=== PATIENT | female | born 1970 | race Caucasian/White ===

== ENCOUNTER → 2023-08-08 13:07 | Outpatient (CLI) | payer BC, SELFPAY ==
--- NOTE | 2023-08-08 13:14 | XR_ITS ---
FINAL REPORT CLINICAL HISTORY: knee pain arthritis in both knees, according to old ortho, fell last night/pain and soreness in knees and ankles, tingling in right leg, when sharp pain can't move, no surgery FINDINGS: RIGHT KNEE 3 views of the right knee were obtained. There is no acute fracture or dislocation. Visualized joint spaces are normally aligned. Soft tissues are unremarkable. IMPRESSION: No acute bony abnormality. Reviewed, Interpreted and Dictated by Kendell Walter III, MD Transcribed by Ofelia Gayle Authenticated and [facility]
--- NOTE | 2023-08-08 13:14 | XR_ITS ---
FINAL REPORT CLINICAL HISTORY: ankle pain arthritis in both knees, according to old ortho, fell last night/pain and soreness in knees and ankles, tingling in right leg, when sharp pain can't move, no surgery FINDINGS: LEFT ANKLE Three views demonstrate no acute fracture or dislocation. There is a small plantar calcaneal spur. The visualized joint spaces are normally aligned. The soft tissues are unremarkable. IMPRESSION: No acute bony abnormality. Reviewed, Interpreted and Dictated by Kendell Walter III, MD Transcribed by Ofelia Gayle Authenticated and [facility]
--- NOTE | 2023-08-08 13:14 | XR_ITS ---
FINAL REPORT CLINICAL HISTORY: ankle pain arthritis in both knees, according to old ortho, fell last night/pain and soreness in knees and ankles, tingling in right leg, when sharp pain can't move, no surgery FINDINGS: RIGHT ANKLE Three views demonstrate no acute fracture or dislocation. There is a small plantar calcaneal spur. The visualized joint spaces are normally aligned. The soft tissues are unremarkable. IMPRESSION: No acute bony abnormality. Reviewed, Interpreted and Dictated by Kendell Walter III, MD Transcribed by Ofelia Gayle Authenticated and [facility]
--- NOTE | 2023-08-08 13:14 | XR_ITS ---
FINAL REPORT CLINICAL HISTORY: foot pain arthritis in both knees, according to old ortho, fell last night/pain and soreness in knees and ankles, tingling in right leg, when sharp pain can't move, no surgery FINDINGS: LEFT FOOT Three views of the left foot demonstrate no acute fracture or dislocation. The visualized joint spaces are normally aligned. There is a small plantar calcaneal spur. The soft tissues are unremarkable. IMPRESSION: No acute bony abnormality. Reviewed, Interpreted and Dictated by Kendell Walter III, MD Transcribed by Ofelia Gayle Authenticated and [facility]
--- NOTE | 2023-08-08 13:14 | XR_ITS ---
FINAL REPORT CLINICAL HISTORY: foot pain arthritis in both knees, according to old ortho, fell last night/pain and soreness in knees and ankles, tingling in right leg, when sharp pain can't move, no surgery FINDINGS: right FOOT Three views of the right foot demonstrate no acute fracture or dislocation. The visualized joint spaces are normally aligned. There is a small plantar calcaneal spur. The soft tissues are unremarkable. IMPRESSION: No acute bony abnormality. Reviewed, Interpreted and Dictated by Kendell Walter III, MD Transcribed by Ofelia Gayle Authenticated and . [facility]
--- NOTE | 2023-08-08 13:14 | XR_ITS ---
FINAL REPORT CLINICAL HISTORY: Lt Knee pain arthritis in both knees, according to old ortho, fell last night/pain and soreness in knees and ankles, tingling in right leg, when sharp pain can't move, no surgery FINDINGS: LEFT KNEE: Three views of the left knee were obtained. There is no acute fracture or dislocation. Visualized joint spaces are normally aligned. There is no joint effusion. Soft tissues are unremarkable. IMPRESSION: No acute bony abnormality. Reviewed, Interpreted and Dictated by Kendell Walter III, MD Transcribed by Ofelia Gayle Authenticated and [facility]
== END ==
PROVIDERS: PCP Family Medicine; Visit Provider Orthopaedic Surgery
DX: M25.572 Pain in left ankle and joints of left foot (principal); M25.571 Pain in right ankle and joints of right foot; M25.562 Pain in left knee; M25.561 Pain in right knee; M79.672 Pain in left foot; M79.671 Pain in right foot
CPT/HCPCS: 73562; 73610; 73630

== ENCOUNTER 2023-08-13 18:11 | Emergency (ER) | payer BC, SELFPAY ==
[2023-08-13 18:30] VITALS: BP 142/94; PULSE 102; RESP 20; TEMP 36.8; O2SAT 97; BMI 29.0
--- NOTE | 2023-08-13 18:58 | XR_ITS ---
PROCEDURE INFORMATION: Exam: XR Left Elbow Exam date and time: 08/13/2023 7:02 PM Age: 52 years old Clinical indication: Pain; Elbow; Left; Additional info: Minor trauma, L elbow pain TECHNIQUE: Imaging protocol: Radiologic exam of the left elbow. Views: 3 or more views. COMPARISON: CR XR HUMERUS LT 08/13/2023 6:58 PM FINDINGS: Bones/joints: No acute fracture or malalignment. No joint effusion. Soft tissues: Normal. IMPRESSION: No acute osseous findings.
--- NOTE | 2023-08-13 18:58 | XR_ITS ---
PROCEDURE INFORMATION: Exam: XR Left Humerus Exam date and time: 08/13/2023 6:58 PM Age: 52 years old Clinical indication: Pain; Upper arm; Left; Additional info: Minor trauma, L shoulder pain TECHNIQUE: Imaging protocol: Radiologic exam of the left humerus. Views: 2 or more views. COMPARISON: CR XR SHOULDER LT MIN 2V 08/13/2023 6:57 PM FINDINGS: Bones/joints: No acute fracture or malalignment. Lungs: Left lung calcified granulomas. Soft tissues: Normal. IMPRESSION: No acute osseous findings.
--- NOTE | 2023-08-13 18:58 | XR_ITS ---
PROCEDURE INFORMATION: Exam: XR Left Shoulder Exam date and time: 08/13/2023 6:57 PM Age: 52 years old Clinical indication: Pain; Shoulder; Left; Additional info: Minor trauma, L shoulder pain TECHNIQUE: Imaging protocol: Radiologic exam of the left shoulder. Views: 2 or more views. COMPARISON: No relevant prior studies available. FINDINGS: Bones/joints: No acute fracture or malalignment. Lungs: Left lung calcified granulomas. Soft tissues: Normal. IMPRESSION: No acute osseous findings.
[2023-08-13 19:00] VITALS: BP 124/74; PULSE 93; TEMP 36.9; O2SAT 97
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
[2023-08-13 20:55] VITALS: BP 121/66; PULSE 94; RESP 18; TEMP 36.4; O2SAT 96
== END 2023-08-13 20:58 | disposition home or self-care (01) ==
PROVIDERS: Emergency Provider Emergency Medicine; PCP Family Medicine
DX: S43.402A Unspecified sprain of left shoulder joint, initial encounter (principal); Y93.72 Activity, wrestling
CPT/HCPCS: 73030; 73060; 73080; 99284

== ENCOUNTER 2024-04-23 17:35 | Emergency (ER) | payer MEDICAID, SELFPAY ==
[2024-04-23] VITALS (7 sets, daily range): BP systolic 134–160; BP diastolic 63–94; PULSE 68–87; RESP 18–20; TEMP 36.7; O2SAT 94–98; BMI 29.6
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
--- NOTE | 2024-04-23 17:34 | CT_ITS ---
PROCEDURE INFORMATION: Exam: CT Cervical Spine Without Contrast Exam date and time: 04/23/2024 7:28 PM Age: 53 years old Clinical indication: Injury or trauma; Additional info: Fall, struck head, severe R chest wall pain TECHNIQUE: Imaging protocol: Computed tomography of the cervical spine without contrast. Radiation optimization: All CT scans at this facility use at least one of these dose optimization techniques: automated exposure control; mA and/or kV adjustment per patient size (includes targeted exams where dose is matched to clinical indication); or iterative reconstruction. COMPARISON: CT CERVICAL SPINE WO CON 04/23/2024 7:28 PM FINDINGS: Bones: Nonspecific reversal. Vertebral body height and AP alignment is preserved. Incomplete segmentation at C2-C3. [id number] prevertebral osteophytosis. Mild degenerative change about the dens. Bilateral facet joint degenerative change. No acute cervical spine fracture. No definite high-grade central canal stenosis within limitations of technique. Lungs: Lung apices are normal. Pleural spaces: No visible pneumothorax. Vasculature: Vascular calcification. Soft tissues: Unremarkable. IMPRESSION: No acute cervical spine fracture.
--- NOTE | 2024-04-23 17:34 | CT_ITS ---
PROCEDURE INFORMATION: Exam: CT Abdomen And Pelvis With Contrast Exam date and time: 04/23/2024 7:33 PM Age: 53 years old Clinical indication: Injury or trauma; Fall; Blunt; Generalized; Additional info: Fall, struck head, severe R chest wall pain TECHNIQUE: Imaging protocol: Computed tomography of the abdomen and pelvis with contrast. Radiation optimization: All CT scans at this facility use at least one of these dose optimization techniques: automated exposure control; mA and/or kV adjustment per patient size (includes targeted exams where dose is matched to clinical indication); or iterative reconstruction. Contrast material: ISOVUE; Contrast volume: 75 ml; Contrast route: IV; COMPARISON: CT CHEST W CON 04/23/2024 7:33 PM FINDINGS: Liver: Normal. No mass. Gallbladder and biliary ducts: Gallbladder is surgically absent. No significant biliary ductal dilation. Pancreas: Normal. No ductal dilation. Spleen: Normal. No splenomegaly. Adrenal glands: Normal. No mass. Kidneys and ureters: Normal. No hydronephrosis. Stomach and bowel: Unremarkable. No obstruction. No mucosal thickening. Appendix: The appendix is visualized and appears normal. Intraperitoneal space: Unremarkable. No free air. No significant fluid collection. Vasculature: Unremarkable. No abdominal aortic aneurysm. Lymph nodes: Unremarkable. No enlarged lymph nodes. Urinary bladder: Unremarkable as visualized. Reproductive: Unremarkable as visualized. Bones/joints: Unremarkable. No acute fracture. Soft tissues: Unremarkable. IMPRESSION: No acute abnormality
--- NOTE | 2024-04-23 17:36 | CT_ITS ---
PROCEDURE INFORMATION: Exam: CT Thoracic Spine Without Contrast Exam date and time: 04/23/2024 7:30 PM Age: 53 years old Clinical indication: Injury or trauma; Additional info: Fall, severe R chest wall pain TECHNIQUE: Imaging protocol: Computed tomography of the thoracic spine without contrast. Radiation optimization: All CT scans at this facility use at least one of these dose optimization techniques: automated exposure control; mA and/or kV adjustment per patient size (includes targeted exams where dose is matched to clinical indication); or iterative reconstruction. COMPARISON: CT CERVICAL SPINE WO CON 04/23/2024 7:28 PM FINDINGS: Bones/joints: Minimal lumbar scoliosis. No vertebral body compression or acute fracture. Moderate degenerative changes in the lower thoracic spine. Mild degenerative changes in the upper thoracic spine. Soft tissues: Unremarkable. IMPRESSION: No acute abnormality. Degenerative changes as noted.
--- NOTE | 2024-04-23 17:49 | ED_ITS ---
Discharge Plan Disposition Patient Disposition: Home, Self-Care Prescriptions Prescriptions: New methocarbamol 750 mg tablet 1,500 mg PO TID 5 Days Qty: 30 0RF lidocaine 5 % adhesive patch,medicated 1 patch topical DAILY Qty: 30 0RF Rx Instructions: leave on most painful area for up to 12 hrs No Action omega 7-hlp-foo-fish oil [Fish Oil] 60-90-500 mg capsule 1 cap PO DAILY gabapentin 300 mg capsule 300 mg PO BID Qty: 60 3RF aspirin 81 mg tablet,delayed release (DR/EC) 81 mg PO DAILY 30 Days Qty: 30 2RF cyclobenzaprine 10 mg tablet 10 mg PO TID Qty: 90 3RF ergocalciferol (vitamin D2) [Vitamin D2] 1,250 mcg (50,000 unit) capsule 1,250 mcg PO WEEKLY 30 Days Qty: 5 2RF fluoxetine 10 mg capsule 10 mg PO DAILY Qty: 30 3RF metformin 1,000 mg tablet 1,000 mg PO BID Qty: 60 3RF atorvastatin 40 mg tablet 40 mg PO DAILY Qty: 30 3RF lisinopril 10 mg tablet 10 mg PO DAILY Patient Comments: TAKE 1 TABLET BY MOUTH ONCE DAILY FOR 30 DAYS Activity Restrictions/Add. Instructions Additional Instructions/Restrictions: Robaxin can cause you to feel drowsy. Do not drive, operate heavy machinery, or engage in any activity that may make you tired, fall asleep, and because harm to yourself or others while taking this medication. Do not take Robaxin with cyclobenzaprine, only take 1 or the other. Take Tylenol 1000 mg every 6 hours (4 times daily) and ibuprofen 400 mg every 6 hours (4 times daily) as needed with food and water to prevent GI upset and kidney damage. Lidocaine patches over point of most tenderness. Follow-up with your family doctor within 48 hours to establish care for this visit to the emergency department and ensure improvement. Clinical Impressions Clinical Impression: Right-sided chest wall pain, Fall Instructions Patient Instructions: DI for Low Back Pain Discharge ED Provider: George Marquez General Adult HPI General Chief complaint: Back Pain/Injury Stated complaint: PAIN FROM FALL Time Seen by Provider: 04/23/24 17:41 Mode of Arrival: EMS Source of Information: Patient and EMS Limitations: No Limitations Description of Symptoms (Recalled from ER Triage Doc. by RN): R RIB/BACK PAIN AFTER A FALL History of Present Illness HPI narrative: Please note that above description of symptoms, in this electronic medical record under categorization of recalled from ER triage doctor by RN are reflective of an initial nursing assessment, however, is not reflective of my full history and physical exam that was personally taken and clarified. Consequentially, this preceding description of symptoms, which may include the patient's categorized chief complaint in the EMR, do not reflect my personal clinical impression, and the ultimate description of history of present illness and patient stated complaints should be deferred to this section of the note. Unless stated otherwise or congruent with this section of the note, additional signs, symptoms, or incongruence should be interpreted as inaccurate with my clinical impression. Related Data Home Medications Medication Instructions Recorded Confirmed omega 1-yla-oee-fish oil 60 mg-90 1 cap PO DAILY 06/26/23 08/28/23 mg-500 mg capsule (Fish Oil) lisinopril 10 mg tablet 10 mg PO DAILY 04/15/24 04/15/24 Previous Rx's Medication Instructions Recorded gabapentin 300 mg capsule 300 mg PO BID #60 caps 06/27/23 aspirin 81 mg tablet,delayed 81 mg PO DAILY 30 days #30 tabs 04/15/24 release atorvastatin 40 mg tablet 40 mg PO DAILY #30 tabs 04/15/24 cyclobenzaprine 10 mg tablet 10 mg PO TID #90 tabs 04/15/24 ergocalciferol (vitamin D2) 1,250 1,250 mcg PO WEEKLY 30 days #5 caps 04/15/24 mcg (50,000 unit) capsule (Vitamin D2) fluoxetine 10 mg capsule 10 mg PO DAILY #30 caps 04/15/24 metformin 1,000 mg tablet 1,000 mg PO BID #60 tabs 04/15/24 lidocaine 5 % topical patch 1 patch topical DAILY #30 ea 04/23/24 methocarbamol 750 mg tablet 1,500 mg (2 x 750 mg) PO TID 5 04/23/24 days #30 tabs Allergies Allergy/AdvReac Type Severity Reaction Status Date / Time No Known Allergies Allergy Verified 04/15/24 11:35 [facility] Disclaimer: The information contained in this section may have been updated after the patient was seen, as this information can be updated by other users. Medical History Depression Anxiety Diabetes mellitus Surgical History History of cholecystectomy H/O tubal ligation Family History Mother Diabetes Coronary artery disease Father Coronary artery disease Diabetes Social History Smoking Status: Never smoker smoking status stop date: 10/21/2012 alcohol intake: never substance use type: denies use current occupational status: disabled Travel in the last 8 weeks: [facility] [employer] [facility] household members: significant other housing: house marital status: life partner ROS Obtained: Yes All systems reviewed & no additional complaints except as documented Physical Exam General General appearance: alert and in distress (Splinting in bed secondary to pain in right posterior lateral chest wall) Head Head exam: atraumatic and normocephalic Eye Eye exam: Present normal appearance, PERRL and EOMI ENT ENT exam: Present mucous membranes moist Neck Neck exam: Present normal inspection, full ROM and trachea midline Chest Chest inspection: Present tenderness (Scant bruising inferior/posterior lateral chest wall on the right. Breath sounds bilateral and equal 1. No abdominal tenderness. No pelvic tenderness, lumbar spine tenderness, or lower extremity deficits. ) Respiratory Respiratory exam: Present normal lung sounds bilaterally; Absent respiratory distress, wheezes, stridor, accessory muscle use or prolonged expiratory phase Cardiovascular Cardiovascular exam: Present normal rhythm Abdominal Exam Abdominal exam: Present soft; Absent distention, tenderness, guarding, rebound or rigidity Extremities Exam Extremities exam: Absent edema Neurological Exam Neurological exam: Present alert, oriented X3, CN II-XII intact and normal gait; Absent motor sensory deficit Skin Skin exam: Present warm and dry; Absent diaphoresis or erythema Medical Decision Making Medical Records Medical records reviewed: Yes I reviewed the patient's medical records. Berto Inquiry Pt receiving controlled substance: No Berto was queried for this patient: No Vital Signs: 04/23/24 17:33 04/23/24 18:00 04/23/24 18:30 Pulse Rate 78 77 Pulse Rate [Right] 86 Respiratory Rate 20 Blood Pressure 137/68 154/84 H Blood Pressure [Right Arm] 160/94 H Blood Pressure Mean [Right Arm] 116 02 Sat by Pulse Oximetry 96 97 96 Oxygen Delivery Method Room Air Room Air 04/23/24 19:00 Pulse Rate 87 Pulse Rate [Right] Respiratory Rate Blood Pressure 143/66 H Blood Pressure [Right Arm] Blood Pressure Mean [Right Arm] 02 Sat by Pulse Oximetry 97 Oxygen Delivery Method Room Air Lab Data Lab Results 04/23/24 18:30: WBC 7.9, RBC 4.36, Hgb 13.8, Hct 40.9, MCV 94.0, MCH 31.6 H, MCHC 33.6, RDW 13.7, Plt Count 339, MPV 7.3 L, Neut % (Auto) 66.3, Lymph % (Auto) 25.6, [place]oke % (Auto) 6.6, Eos % (Auto) 0.7, Baso % (Auto) 0.8, Neut # (Auto) 5.3, Lymph # (Auto) 2.0, [place] # (Auto) 0.5, Eos # (Auto) 0.1, Baso # (Auto) 0.1, PT 10.3, INR 0.91, APTT 27.2, Sodium 139, Potassium 3.6, Chloride 106, Carbon Dioxide 28, Anion Gap 8.6, BUN 12, Creatinine 0.80, Estimated Creat Clear 90, Estimated GFR 75, Est GFR ( Amer) 90, Glucose 252 H, Calcium 9.6, Total Bilirubin 0.2, AST 26, ALT 20, Alkaline Phosphatase 89, Total Protein 7.2, Albumin 4.3, Globulin 2.9, Albumin/Globulin Ratio 1.5 04/23/24 18:30 04/23/24 18:30 Orders (Tests/Meds): ED MEDICATIONS Discontinued Medications Generic Name Dose Route Start Last Admin Trade Name Almas PRN Reason Stop Dose Admin Acetaminophen 1,000 mg 04/23/24 17:34 04/23/24 17:57 Acetaminophen 1,000mg/100ml Vial IV 04/23/24 17:35 1,000 mg ONCE ONE Administration Acetaminophen 1,000 mg 04/23/24 19:56 Acetaminophen 500mg Tab PO 04/23/24 19:57 ONCE ONE Hydromorphone HCl 1 mg 04/23/24 17:34 04/23/24 17:58 Hydromorphone 2mg/Ml Syringe IV 04/23/24 17:35 1 mg ONCE ONE Administration Iopamidol 75 ml 04/23/24 19:34 04/23/24 19:43 Iopamidol-370 (76%);100ml Bottle IV 04/23/24 19:35 75 ml ONCE ONE Administration Ketorolac Tromethamine 15 mg 04/23/24 17:34 04/23/24 17:57 Ketorolac 30mg/Ml Vial IV 04/23/24 17:35 15 mg ONCE ONE Administration Lidocaine 1 each 04/23/24 19:56 Lidocaine 5% Transdermal Patch TP 04/23/24 19:57 ONCE ONE Methocarbamol 1,500 mg 04/23/24 19:56 Methocarbamol 500mg Tablet PO 04/23/24 19:57 ONCE ONE Sodium Chloride 10 ml 04/23/24 19:34 04/23/24 19:43 Sodium Chloride 0.9% 10ml Syr (Rad Only) IV 04/23/24 19:35 10 ml ONCE ONE Administration ORDERS Category Date Time Status CT abdomen pelvis w con Stat Cat Scan 04/23/24 17:[address] cervical spine wo con Stat Cat Scan 04/23/24 17:[address] chest w con Stat Cat Scan 04/23/24 17:[address] head/brain wo con Stat Cat Scan 04/23/24 17:[address] thoracic spine wo con Stat Cat Scan 04/23/24 17:36 Completed CBC w/Auto Diff [Complete Blood Count Auto Diff] Stat Lab 04/23/24 18:30 Completed CMP [Comprehensive Metabolic Panel] Stat Lab 04/23/24 18:30 Completed PT INR [Prothrombin Time INR] Stat Lab 04/23/24 18:30 Completed PTT [Activated Partial Thrombo Time] Stat Lab 04/23/24 18:30 Completed Medical Decision Narrative: 53-year-old female history of hypertension and diabetes and hyperlipidemia presenting with pain after fall. Patient states she was walking outside, slipped on the steps in the rain, landed on her right side on the concrete. Struck the side of her head, no loss of conscious. Had immediate pain in her right side that was so severe that she was unable to get herself up. Called EMS. EMS gave her 100 mcg of fentanyl and transported her to the emergency department. Patient states not having head pain, vision changes, neck or back pain, but having severe right-sided chest wall pain. No difficulty breathing, cough, mops this, vomiting, lower back, hip or leg pain. Ambulated once EMS was able to help her up to the EMS truck and onto the stretcher. Not on anticoagulation. History was obtained via conversation with patient and EMS. On arrival, patient hemodynamically stable, alert, oriented x4, appropriate, GCS 15, moving all extremities spontaneously, pupils equal and reactive to light. Full physical exam performed and significant for 53-year-old female who appears to be in acute distress secondary to pain. Holding her right side. Splinting in bed. Not moving much. Acting as if she is in severe pain even prior to laying hands on affected area. Lungs are clear to auscultation bilaterally. Oxygen is normal, patient is tachycardic and hypertensive. Abdomen soft, nontender, nondistended. No other abnormalities on physical exam. Differential includes rib fracture, pulmonary contusion, liver laceration, strain, sprain, fracture, intracranial bleed, among others. Patient was given 1 mg Dilaudid, 15 mg Toradol for symptomatic management and correction of underlying abnormalities. Workup independently interpreted and significant for nonactionable CBC or chemistry. CT imaging of the head, neck, chest, abdomen and pelvis without acute pathology. See radiology read for full review of final results. On reevaluation, patient still having pain, given lidocaine patch and Robaxin. Given patient presentation, workup, history, this most likely represents musculoskeletal strain in setting of fall from standing. Because patient at baseline without signs or symptoms of clinical decompensation, deemed appropriate for discharge. Results were relayed to patient who voiced understanding and were agreeable to outpatient management and follow up. I discussed my clinical impression with patient and answered all questions. At this time, the evidence for any other entities in the differential is insufficient to warrant any further testing or ED observation. This was explained as well. Advisory was given that persistent or worsening symptoms require further evaluation. I confirmed the understanding of this discussion. 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 Electronic conductor symphonic orchestra of the spoken language may permit errors. Although I have reviewed the note, some errors may still exist. Critical Care Critical Care Time Critical Care Time: No
[2024-04-23] MEDS: KETOROLAC 30MG/ML VIAL 15 MG IV (17:57)
[2024-04-23] MEDS: ACETAMINOPHEN 1,000MG/100ML VIAL 1000 MG IV (17:57)
[2024-04-23] MEDS: HYDROMORPHONE 2MG/ML SYRINGE 1 MG IV (17:58)
[2024-04-23 18:42] LABS: Basophils # 0.1 K/mm3 (0-0.2); Basophils % 0.8 % (0.1-2.0); Eosinophils # 0.1 K/mm3 (0.0-0.4); Eosinophils % 0.7 % (0.1-12.0); Hematocrit 40.9 % (37.0-47.0); Hemoglobin 13.8 g/dL (12.2-16.2); Lymphocytes % 25.6 % (10-50); Mean Corpuscular HGB Conc 33.6 g/dL (31.8-35.4); Mean Corpuscular Hemoglobin 31.6 pg (27.0-31.2); Mean Platelet Volume 7.3 fl (7.4-10.4); Monocytes # 0.5 K/mm3 (0.1-1.0); Monocytes % 6.6 % (1.7-9.3); Neutrophils # 5.3 K/mm3 (1.8-7.8); Neutrophils % 66.3 % (37.0-80.0); Platelet Count 339 K/mm3 (142-424); Red Blood Count 4.36 M/mm3 (4.20-5.40); Red Cell Distribution Width 13.7 % (11.5-17.5); White Blood Count 7.9 K/mm3 (4.8-10.8)
[2024-04-23 18:48] LABS: Chloride 106 mmol/L (98-107); Potassium 3.6 mmoL/L (3.5-5.1); Sodium 139 mmol/L (136-145)
[2024-04-23 18:50] LABS: Blood Urea Nitrogen 12 mg/dl (7-17)
[2024-04-23 18:51] LABS: Alanine Aminotransferase 20 U/L (12-78); Albumin Level 4.3 g/dl (3.5-5.0); Albumin/Globulin Ratio 1.5 (1.1-1.8); Alkaline Phosphatase 89 U/L (38-126); Anion Gap 8.6 mEq/L (5-15); Aspartate Amino Transferase 26 U/L (14-36); Bilirubin,Total 0.2 mg/dl (0.2-1.3); Calcium 9.6 mg/dl (8.4-10.2); Carbon Dioxide 28 mmol/L (22.0-30.0); Creatinine Clearance Estimated 90 mL/min (50-200); Estimated Glomerular Filt Rate 75 ml/min (>60); GFR (African American) 90 ML/MIN (>60); Globulin 2.9 g/dL (1.3-3.2); Glucose 252 mg/dl (74-100); Total Protein,Serum 7.2 g/dl (6.3-8.2)
[2024-04-23 18:53] LABS: Activated Partial Thrombo Time 27.2 seconds (22.8-30.6); INR 0.91 (0.9-1.1); Prothrombin Time 10.3 seconds (10.1-12.5)
--- NOTE | 2024-04-23 19:18 | PC.NURSE ---
Patient to CT in wheelchair
[2024-04-23] MEDS: SODIUM CHLORIDE 0.9% 10ML SYR (RAD ONLY) 10 ML IV (19:43)
[2024-04-23] MEDS: IOPAMIDOL-370 (76%);100ML BOTTLE 75 ML IV (19:43)
--- NOTE | 2024-04-23 19:43 | PC.NURSE ---
Patient returned to room in wheelchair from CT
[2024-04-23] MEDS: LIDOCAINE 5% TRANSDERMAL PATCH 1 EACH TP (20:04)
[2024-04-23] MEDS: METHOCARBAMOL 500MG TABLET 1500 MG PO (20:04)
== END 2024-04-23 20:34 | disposition home or self-care (01) ==
PROVIDERS: Emergency Provider Emergency Medicine; PCP Family Medicine
DX: R07.89 Other chest pain (principal); W01.10XA Fall on same level from slipping, tripping and stumbling with subsequent striking against unspecified object, initial encounter; E11.9 Type 2 diabetes mellitus without complications; K21.9 Gastro-esophageal reflux disease without esophagitis; E78.5 Hyperlipidemia, unspecified; I10 Essential (primary) hypertension; Z79.84 Long term (current) use of oral hypoglycemic drugs
CPT/HCPCS: 70450; 71260; 72125; 72128; 74177; 80053; 85025; 85610; 85730; 96374; 96375; 99285; J0131; J1170; J1885; Q9967

== ENCOUNTER 2024-04-30 16:25 | Outpatient (CLI) | payer MEDICAID, SELFPAY | END 2024-04-30 23:59 | disposition home or self-care (01) | LOC: LAB.DROPOF 16:26 | PROVIDERS: PCP Nurse Practitioner Family; Visit Provider Nurse Practitioner Family | DX: L02.224 Furuncle of groin (principal) | CPT/HCPCS: 87070; 87077; 87186; 87205 ==

== ENCOUNTER 2024-07-23 16:55 | Emergency (ER) | payer MEDICAID, SELFPAY ==
[2024-07-23 16:56] VITALS: BP 162/87; PULSE 94; RESP 16; TEMP 36.5; O2SAT 98; BMI 30.2
[2024-07-23 17:06] VITALS: BP 162/87; PULSE 100; O2SAT 97
--- NOTE | 2024-07-23 17:08 | ECG_ITS ---
APPROVED REPORT Exam: Resting ECG HR:91 bpm ECG Measurements Heart Rate 91 AXES MO 158 P 68 QRSd 75 QRS 85 QT 338 T -9 QTc 387 Conclusion SINUS RHYTHM LOW QRS VOLTAGE IN PRECORDIAL LEADS [QRS DEFLECTION < 1.0 mV IN CHEST LEADS] ANTEROSEPTAL MYOCARDIAL INFARCTION , OF INDETERMINATE AGE [40+ ms Q WAVE IN V1-V4] ABNORMAL ECG UNCONFIRMED REPORT Electronically signed by : James Tena, 07/23/2024 22:52:04
--- NOTE | 2024-07-23 17:15 | XR_ITS ---
PROCEDURE INFORMATION: Exam: XR Chest Exam date and time: 07/23/2024 5:28 PM Age: 53 years old Clinical indication: Pain; Other: Chest; Additional info: Chest pain, epigastric pain TECHNIQUE: Imaging protocol: Radiologic exam of the chest. Views: 1 view. COMPARISON: CT CHEST W CON 04/23/2024 7:33 PM FINDINGS: Lungs: Lungs are clear. No focal consolidation or pulmonary edema. Stable small left calcified granuloma. Pleural spaces: No pleural effusion. No pneumothorax. Heart/Mediastinum: Cardiomediastinal silhouette is normal. Diaphragm: Stable mild asymmetric elevation of the right hemidiaphragm. Bones/joints: No acute abnormality. Intraperitoneal space: Postsurgical changes in the right upper abdomen. IMPRESSION: No acute findings.
[2024-07-23 17:23] LABS: Basophils % 0.4 % (0.1-2.0); Eosinophils # 0.1 K/mm3 (0.0-0.4); Eosinophils % 1.3 % (0.1-12.0); Hematocrit 42.5 % (37.0-47.0); Hemoglobin 13.5 g/dL (12.2-16.2); Lymphocytes # 2.3 K/mm3 (0.7-4.5); Lymphocytes % 25.1 % (10-50); Mean Corpuscular HGB Conc 31.8 g/dL (31.8-35.4); Mean Corpuscular Hemoglobin 30.9 pg (27.0-31.2); Mean Corpuscular Volume 97.2 fl (81-99); Mean Platelet Volume 6.7 fl (7.4-10.4); Monocytes # 0.5 K/mm3 (0.1-1.0); Monocytes % 4.9 % (1.7-9.3); Neutrophils # 6.3 K/mm3 (1.8-7.8); Neutrophils % 68.3 % (37.0-80.0); Platelet Count 340 K/mm3 (142-424); Red Blood Count 4.38 M/mm3 (4.20-5.40); Red Cell Distribution Width 13.5 % (11.5-17.5); White Blood Count 9.3 K/mm3 (4.8-10.8)
[2024-07-23 17:30] VITALS: BP 134/76; PULSE 88; O2SAT 97
--- NOTE | 2024-07-23 17:33 | ED_ITS ---
<Statement entered by Guy Tena MD - 07/23/24 22:49> I was consulted by the HORACE, and we discussed the complexity of the problems being addressed. I approved the treatment and management plan for this patient's care in the emergency department, thus performing a substantive portion of the medical decision making. Guy Tena MD, JANES, FACEP Discharge Plan Disposition Patient Disposition: Home, Self-Care Condition: Good Prescriptions Prescriptions: No Action aspirin 81 mg tablet,delayed release (DR/EC) 81 mg PO DAILY 30 Days Qty: 30 2RF cyclobenzaprine 10 mg tablet 10 mg PO TID Qty: 90 3RF ergocalciferol (vitamin D2) [Vitamin D2] 1,250 mcg (50,000 unit) capsule 1,250 mcg PO WEEKLY 30 Days Qty: 5 2RF fluoxetine 10 mg capsule 10 mg PO DAILY Qty: 30 3RF metformin 1,000 mg tablet 1,000 mg PO BID Qty: 60 3RF atorvastatin 40 mg tablet 40 mg PO DAILY Qty: 30 3RF lisinopril 10 mg tablet 10 mg PO DAILY Patient Comments: TAKE 1 TABLET BY MOUTH ONCE DAILY FOR 30 DAYS omeprazole 20 mg capsule,delayed release(DR/EC) 20 mg PO BID Qty: 60 2RF methocarbamol 750 mg tablet 1,500 mg PO TID 5 Days Qty: 30 0RF lidocaine 5 % adhesive patch,medicated 1 patch topical DAILY Qty: 30 0RF Rx Instructions: leave on most painful area for up to 12 hrs Referrals Follow up/Referrals: Tiburcio Zamudio II, MD [Staff Physician] - See instructions Ezequiel Diaz MD [Primary Care Provider] - See instructions Activity Restrictions/Add. Instructions Additional Instructions/Restrictions: Please call in the morning to make appointment with Dr. Zamudio. Follow-up with your PCP within 48 hours for recheck. Return to ER for any worsening signs or symptoms as needed. Clinical Impressions Clinical Impression: Dysphagia Qualifiers: Dysphagia type: unspecified Qualified Code(s): R13.10 - Dysphagia, unspecified Instructions Patient Instructions: DI for Esophageal Dysphagia Print Language Print Language: [place] Discharge ED Provider: Guy Tena General Adult [facility] General Chief complaint: Chest Pain Stated complaint: epigastric pain Time Seen by Provider: 07/23/24 17:33 Mode of Arrival: EMS Source of Information: Patient and EMS Limitations: No Limitations Description of Symptoms (Recalled from ER Triage Doc. by RN): pt presents to ED with c/o chest pain, epigastic pain. pt reports that she went to see her pcp for burning in her chest that has been ongoing for the past 3-4 days. pt was given omeprazole 20mg today. pt reports that she took the medication and then begin to feel worsening epigastic pain, nausea, hot flashes. History of Present Illness HPI narrative: YesterdayPatient presents for evaluation of dysphagia. Patient reported that she had some soreness that she described as chest pain. She went to her PCP today for evaluation and he gave her a pill to try which she took. She then went home and had 3 glazed doughnut and had immediate recurrence of the pain that she describes as retrosternal. She does not have a cardiac history did but did have a vomiting episode at which point her discomfort was relieved. She did not report feeling choked or drooling. She has since been able to tolerate water but was brought to the emergency department for evaluation. She denies fever chills hemoptysis hematochezia melena diarrhea. Related Data Home Medications ?Medication ?Instructions ?Recorded ?Confirmed lisinopril 10 mg tablet 10 mg PO DAILY 04/15/24 07/23/24 Previous Rx's ?Medication ?Instructions ?Recorded aspirin 81 mg tablet,delayed 81 mg PO DAILY 30 days #30 tabs 04/15/24 release atorvastatin 40 mg tablet 40 mg PO DAILY #30 tabs 04/15/24 cyclobenzaprine 10 mg tablet 10 mg PO TID #90 tabs 04/15/24 ergocalciferol (vitamin D2) 1,250 1,250 mcg PO WEEKLY 30 days #5 caps 04/15/24 mcg (50,000 unit) capsule (Vitamin D2) fluoxetine 10 mg capsule 10 mg PO DAILY #30 caps 04/15/24 metformin 1,000 mg tablet 1,000 mg PO BID #60 tabs 04/15/24 lidocaine 5 % topical patch 1 patch topical DAILY #30 ea 04/23/24 methocarbamol 750 mg tablet 1,500 mg (2 x 750 mg) PO TID 5 04/23/24 days #30 tabs omeprazole 20 mg capsule,delayed 20 mg PO BID #60 caps 07/23/24 release Allergies Allergy/AdvReac Type Severity Reaction Status Date / Time No Known Allergies Allergy Verified 07/23/24 11:03 [facility] Disclaimer: The information contained in this section may have been updated after the patient was seen, as this information can be updated by other users. Medical History Depression Anxiety Diabetes mellitus Surgical History History of cholecystectomy H/O tubal ligation Family History Mother Diabetes Coronary artery disease Father Coronary artery disease Diabetes Social History Smoking Status: Never smoker smoking status stop date: 10/21/2012 alcohol intake: never substance use type: denies use current occupational status: disabled Travel in the last 8 weeks: [place] the [place] household members: significant other housing: house marital status: life partner Other Medical History Have you received the Pneumonia Vaccine: No ROS Obtained: Yes Systems reviewed as appropriate & no additional complaints except as documented Physical Exam General General appearance: alert and in no apparent distress Neck Neck exam: Present lymphadenopathy Respiratory Respiratory exam: Present normal lung sounds bilaterally Cardiovascular Cardiovascular exam: Present regular rate Neurological Exam Neurological exam: Present alert and oriented X3 Medical Decision Making Medical Records Medical records reviewed: Yes I reviewed the patient's medical records. Screening: Per USPSTF and CDC recommendations, given the prevalence of disease in our region, it is our hospital?s policy to screen for HIV and viral Hepatitis for all patients aged 18 and over and those with ongoing risk factors. Berto Inquiry Pt receiving controlled substance: No Vital Signs: 07/23/24 16:56 07/23/24 17:06 07/23/24 17:30 Temperature 97.7 F Temperature Source Oral Pulse Rate 100 H 88 Pulse Rate [Left Radial] 94 H Respiratory Rate 16 Blood Pressure 162/87 H 134/76 Blood Pressure [Right Arm] 162/87 H Blood Pressure Mean [Right Arm] 112 02 Sat by Pulse Oximetry 98 97 97 Oxygen Delivery Method Room Air 07/23/24 18:00 07/23/24 18:30 07/23/24 19:03 Temperature 98.0 F Temperature Source Pulse Rate 88 90 86 Pulse Rate [Left Radial] Respiratory Rate 16 Blood Pressure 140/77 144/82 H 108/79 L Blood Pressure [Right Arm] Blood Pressure Mean [Right Arm] 02 Sat by Pulse Oximetry 99 97 Oxygen Delivery Method Room Air Room Air Lab Data Lab results reviewed: Yes I reviewed the patient's lab results. Lab Results 07/23/24 17:12: WBC 9.3, RBC 4.38, Hgb 13.5, Hct 42.5, MCV 97.2, MCH 30.9, MCHC 31.8, RDW 13.5, Plt Count 340, MPV 6.7 L, Neut % (Auto) 68.3, Lymph % (Auto) 25.1, [place] % (Auto) 4.9, Eos % (Auto) 1.3, Baso % (Auto) 0.4, Neut # (Auto) 6.3, Lymph # (Auto) 2.3, [place] # (Auto) 0.5, Eos # (Auto) 0.1, Baso # (Auto) 0.0, Sodium 136, Potassium 4.4, Chloride 101, Carbon Dioxide 23, Anion Gap 16.4 H, BUN 10, Creatinine 0.60, Estimated Creat Clear 123, Estimated GFR 104, Est GFR ( Amer) 126, Glucose 177 H, Calcium 9.4, Total Bilirubin 0.8, AST 35, ALT 22, Alkaline Phosphatase 83, Troponin I < 0.01, Total Protein 7.6, Albumin 4.7, Globulin 2.9, Albumin/Globulin Ratio 1.6, Lipase 105, HIV 1&2 Antibody Rapid Nonreactive 07/23/24 17:12 07/23/24 17:12 Orders (Tests/Meds): ED MEDICATIONS Discontinued Medications Generic Name Dose Route Start Last Admin Trade Name [place]mas PRN Reason Stop Dose Admin Acetaminophen 1,000 mg 07/23/24 17:54 07/23/24 18:08 Acetaminophen 1,000mg/100ml Vial IV 07/23/24 17:55 1,000 mg ONCE ONE Administration Belladonna Alkaloids 60 ml 07/23/24 17:54 07/23/24 18:07 Belladonna Alkaloids 60 Ml Ml PO 07/23/24 17:55 60 ml ONCE ONE Administration Lactated Ringer's 1,000 mls @ 999 mls/hr 07/23/24 17:54 07/23/24 18:08 Lactated Ringer's 1000 Ml Bag IV 07/23/24 18:54 999 mls/hr .Q1H1M ONE Administration Ondansetron HCl 4 mg 07/23/24 17:54 07/23/24 18:08 Ondansetron 4mg/2ml Vial IV 07/23/24 17:55 4 mg ONCE ONE Administration Sodium Chloride 10 ml 07/23/24 17:15 Sodium Chloride 0.9% 10ml Flush Syringe IV 08/22/24 17:14 NEEDED PRN Maintain IV Site ORDERS Category Date Time Status XR chest portable Stat Exams 07/23/24 17:15 Completed Complete Blood Count Auto Diff Stat Lab 07/23/24 17:12 Completed Comprehensive Metabolic Panel Stat Lab 07/23/24 17:12 Completed HIV (1&2) Antibody Rapid Stat Lab 07/23/24 17:12 Completed Hep C Ab with Reflex to RNA Stat Lab 07/23/24 17:12 Received Lipase Stat Lab 07/23/24 17:12 Completed Troponin I Stat Lab 07/23/24 17:12 Completed Medical Decision Narrative: In summary patient is a 53-year-old female who presents to the emergency department for evaluation of dysphagia. Patient is normotensive with a blood pressure 162/87 sat of 98% heart rate 94 respiratory rate of 16 upon arrival, afebrile. Physical exam is remarkable for slight epigastric tenderness to palpation but no rebound or guarding or rigidity. Pain is not reproducible on palpation of the sternum or anterior chest wall. Breath sounds are clear and equal bilaterally to the bases.. Differential diagnosis includes ACS versus gastroenteritis versus esophageal spasm versus ulcer disease etc. Initial workup will be conducted with hematologic labs twelve-lead EKG plain film chest x-ray. Initial interventions include crystalloid bolus Tylenol GI cocktail. Initial workup reviewed by me shows that her hematologic labs are nonactionable including an undetectable troponin, twelve-lead EKG shows no evidence of ACS, my informal interpretation of her plain film chest x-ray shows no acute processes. Upon repeat evaluation patient had complete resolution of her symptoms after administration of GI cocktail and is tolerating oral intake. Given this patient is appropriate for discharge with referral to gastroenterology for upper endoscopy evaluation with strict return precautions. Critical Care Critical Care Time Critical Care Time: No
--- NOTE | 2024-07-23 17:40 | PC.NURSE ---
pa at bedside
[2024-07-23 17:43] LABS: Albumin Level 4.7 g/dl (3.5-5.0); Chloride 101 mmol/L (98-107); Potassium 4.4 mmoL/L (3.5-5.1); Sodium 136 mmol/L (136-145)
[2024-07-23 17:45] LABS: Blood Urea Nitrogen 10 mg/dl (7-17)
[2024-07-23 17:46] LABS: Alanine Aminotransferase 22 U/L (12-78); Albumin/Globulin Ratio 1.6 (1.1-1.8); Alkaline Phosphatase 83 U/L (38-126); Anion Gap 16.4 mEq/L (5-15); Aspartate Amino Transferase 35 U/L (14-36); Bilirubin,Total 0.8 mg/dl (0.2-1.3); Calcium 9.4 mg/dl (8.4-10.2); Carbon Dioxide 23 mmol/L (22.0-30.0); Creatinine Clearance Estimated 123 mL/min (50-200); Estimated Glomerular Filt Rate 104 ml/min (>60); GFR (African American) 126 ML/MIN (>60); Globulin 2.9 g/dL (1.3-3.2); Glucose 177 mg/dl (74-100); Total Protein,Serum 7.6 g/dl (6.3-8.2)
[2024-07-23 17:58] LABS: Troponin I < 0.01 ng/ml (0.00-0.034)
[2024-07-23 18:00] VITALS: BP 140/77; PULSE 88; O2SAT 99
[2024-07-23] MEDS: BELLADONNA ALKALOIDS 60 ML ML PO (18:07)
[2024-07-23] MEDS: ACETAMINOPHEN 1,000MG/100ML VIAL 1000 MG IV (18:08)
[2024-07-23] MEDS: ONDANSETRON 4MG/2ML VIAL 4 MG IV (18:08)
[2024-07-23] MEDS: LACTATED RINGERS 1000ML 1,000 ML 999 ML IV (18:08)
[2024-07-23 18:10] LABS: HIV (1&2) Antibody Rapid NONREACTIVE (NONREACTIVE)
[2024-07-23 18:12] LABS: Lipase 105 U/L (23-300)
[2024-07-23 18:30] VITALS: BP 144/82; PULSE 90; O2SAT 97
[2024-07-23 19:03] VITALS: BP 108/79; PULSE 86; RESP 16; TEMP 36.7
[2024-07-25 05:15] LABS: HCV Ab Non Reactive (Non Reactive)
== END 2024-07-23 19:11 | disposition home or self-care (01) ==
PROVIDERS: Physician Assistant; Emergency Provider Student in an Organized Health Care Education/Training Program; PCP Family Medicine
DX: R13.10 Dysphagia, unspecified (principal)
CPT/HCPCS: 71045; 80053; 83690; 84484; 85025; 86803; 87389; 93005; 96361; 96374; 96375; 99284; J0131; J2405; J7120

== ENCOUNTER 2024-09-30 07:50 | Day surgery (SDC) | payer MEDICAID, SELFPAY ==
[2024-09-25 15:22] VITALS: BMI 32.1
[2024-09-30 08:55] VITALS: BP 129/87; PULSE 99; RESP 18; TEMP 36.2; O2SAT 100
[2024-09-30] MEDS: LACTATED RINGERS 1000ML 1,000 ML 25 ML IV (09:10)
--- NOTE | 2024-09-30 09:36 | EXP.ANES.CKL ---
[facility] Disclaimer: The information contained in this section may have been updated after the patient was seen, as this information can be updated by other users. Medical History H/O: hypertension H/O hyperlipidemia H/O diabetes mellitus Depression Anxiety Diabetes mellitus Surgical History History of cholecystectomy H/O tubal ligation Family History Mother Diabetes Coronary artery disease Father Coronary artery disease Diabetes Social History Smoking Status: Never smoker smoking status stop date: 10/21/2012 alcohol intake: never substance use type: denies use current occupational status: disabled Travel in the last 8 weeks: [place] household members: significant other housing: house marital status: life partner [facility] Anesthesia Checklist Patient Identification Patient Identification: Verbal (Name & ) Structural Data Admitted From: Home Planned Operative Procedure/s: egd NPO Status Verified Time NPO: 00:00 Airway Assessment Mallampati Score:: Class II C-Spine Mobility Assessed: Yes TMJ Mobility Assessed: Yes Dentition: Poor Dentition Neurological Assessment Level of Consciousness: Awake, Alert and Appropriate Anesthesia Plan Anesthesia Risk discussed: Yes Anesthesia Plan: Verified ASA Class: II Anesthesia Type: MAC
[2024-09-30 09:49] VITALS: O2SAT 98
--- NOTE | 2024-09-30 09:51 | EXP.HP ---
History of Present Illness *Admission Date: 09/30/24 *Reason for visit:: Dysphagia/throat burning *History of present illness: Mrs. Shen is a 53-year-old female who is here for diagnostic/therapeutic upper endoscopy secondary to dysphagia and throat burning. She does get some belching. The examination is deemed medically necessary for EGD. The patient has been seen, interviewed and examined prior to the procedure by both myself and the anesthesia provider. [facility] Disclaimer: The information contained in this section may have been updated after the patient was seen, as this information can be updated by other users. Medical History H/O: hypertension H/O hyperlipidemia H/O diabetes mellitus Depression Anxiety Diabetes mellitus Surgical History History of cholecystectomy H/O tubal ligation Family History Mother Diabetes Coronary artery disease Father Coronary artery disease Diabetes Social History Smoking Status: Never smoker smoking status stop date: 10/21/2012 alcohol intake: never substance use type: denies use current occupational status: disabled Travel in the last 8 weeks: [place] the [place] household members: significant other housing: house marital status: life partner Other Medical History Have you received the Pneumonia Vaccine: No Review of Systems Review of Systems Review of systems (narrative): Negative *Cardiovascular Comments: Negative *Gastrointestinal Comments: Negative *Genitourinary Comments: Negative *Musculoskeletal Comments: Negative *Neurologic Comments: Negative Meds Home Medications and Allergies Home Medications ?Medication ?Instructions ?Recorded ?Confirmed ?Type cyclobenzaprine 10 mg tablet 10 mg PO TID #90 tabs 04/15/24 09/30/24 Rx lidocaine 5 % topical patch 1 patch topical DAILY #30 ea 04/23/24 09/30/24 Rx methocarbamol 750 mg tablet 1,500 mg (2 x 750 mg) PO TID 5 04/23/24 09/30/24 Rx days #30 tabs aspirin 81 mg tablet,delayed 81 mg PO DAILY 30 days #30 tabs 09/24/24 09/30/24 Rx release atorvastatin 40 mg tablet 40 mg PO DAILY 30 days #30 tabs 09/24/24 09/30/24 Rx ergocalciferol (vitamin D2) 1,250 1,250 mcg PO WEEKLY 30 days #5 caps 09/24/24 09/30/24 Rx mcg (50,000 unit) capsule (Vitamin D2) fluoxetine 10 mg capsule 10 mg PO DAILY 30 days #30 caps 09/24/24 09/30/24 Rx lisinopril 10 mg tablet 10 mg PO DAILY 30 days #30 tabs 09/24/24 09/30/24 Rx metformin 1,000 mg tablet 1,000 mg PO BID 30 days #60 tabs 09/24/24 09/30/24 Rx New Prescriptions to Start Prescriptions: Allergies Allergy/AdvReac Type Severity Reaction Status Date / Time omeprazole Allergy Weakness Verified 09/30/24 09:08 Exam Data for Last 24 hours Vital signs and Labs for Last 24 Hours: Temp Pulse Resp BP Pulse Ox O2 Del Method O2 Flow Rate 97.1 F L 99 H 18 129/87 100 Nasal Cannula 5 09/30/24 08:55 09/30/24 08:55 09/30/24 08:55 09/30/24 08:55 09/30/24 08:55 09/30/24 09:49 09/30/24 09:49 *Routine HEENT Exam Head: Present normocephalic Eye: Present EOMI and PERRL ENT: Present mucous membranes moist *Routine Neck Exam Neck: Present supple *Routine Respiratory Exam Respiratory: Present CTA bilaterally *Routine Cardiovascular Exam Cardiovascular: Present RRR *Routine Abdominal Exam Abdominal: Present soft and normoactive bowel sounds; Absent tenderness *Routine Rectal Exam Rectal:: deferred *Routine Genitalia Exam Genitalia:: deferred *Routine Extremities Exam Extremities: Absent cyanosis, clubbing or edema *Routine Skin Exam Skin: Present warm; Absent rash *Routine Neurological Exam Neurological: Present alert and oriented X3 Assessment and Plan *Assessment and plan (1) Dysphagia: Status: Acute Qualifiers: Dysphagia type: unspecified Qualified Code(s): R13.10 - Dysphagia, unspecified Category: Medical Code(s): R13.10 - Dysphagia, unspecified (2) Pyrosis: Status: Acute Category: Medical Code(s): R12 - Heartburn (3) Belching: Status: Acute Category: Medical Code(s): R14.2 - Eructation Plan A/P: 1. Dysphagia with pyrosis and belching is the preprocedural diagnosis. The patient will be anesthetized/sedated using MAC sedation. The patient has been seen and examined. Cardiac and lung assessment prior to the examination is stable. Proceed with planned EGD
--- NOTE | 2024-09-30 09:53 | P.PCN_ITS ---
[facility] Procedure Note Date: 09/30/24 Time: 10:01 Procedure Note:: Upper Endoscopy Procedure Report: Esophagogastroduodenoscopy with cold biopsies and TTS balloon dilation Endoscopost: Tiburcio Zamudio II, MD Referring Physician: Ezequiel Diaz MD Date of Procedure: September 30, 2024 Equipment: Olympus GIF 190 standard upper endoscope Sedation: MAC sedation Indications: Mrs. Aguilar is a 53-year-old female who is here for diagnostic upper endoscopy secondary to pyrosis with burning in the throat. She does get some belching. She has had dysphagia to solid foods such as breads and meats. She took 1 dose of omeprazole and had diaphoresis and shortness of breath and had to go to the emergency department. She reports no bloating or reflux. She has had no nausea. She reports regular bowel function. This is her first upper endoscopy. Procedure: Prior to the procedure, a history and physical exam was performed, and patient's medications and allergies were reviewed. The risks, benefits and alternatives of the sedation and procedure were discussed with the patient. All questions were answered and informed consent was obtained. The patient was brought to the procedure room. Patient identification and proposed procedure were verified by the physician and the nurse. The patient was placed in a left lateral decubitus position and the scope was passed under direct vision. Throughout the procedure, the patient's blood pressure, pulse, and oxygen saturations were monitored continuously. The upper GI endoscopy was accomplished without difficulty. The patient tolerated the procedure well. Findings: The scope was passed directly into the upper esophagus and advanced to the third portion of the duodenum. The post bulbar duodenum and duodenal bulb were normal with normal mucosa and conniventes. There was a prominent ampulla and the ampulla was normal. The scope was withdrawn through a normal duodenal bulb and pylorus into the stomach. There was evidence of linear reactive gastropathy of the antrum. The body and fundus of the stomach were normal. Upon retroflexion there was a 2 to 3 cm hiatal hernia. Biopsies were taken from the antrum and incisura. The scope was then withdrawn into the esophagus. There was evidence of grade A reflux esophagitis. There was no evidence of Ross's esophagus. Biopsies were taken from the GE junction. There were tertiary contractions and evidence of moderate esophageal dysmotility. The entire esophagus was dilated to 60 [place]/20 mm with a TTS hydrostatic balloon. There was some resistance at the cricopharyngeus. There was no evidence of an inlet patch, Schatzki's ring, web or corrugation. The remainder of the esophageal mucosa was normal. Impression: 1. Cricopharyngeal spasm status post dilation to 20 mm 2. Grade A reflux esophagitis with moderate esophageal dysmotility and medium sized 2 to 3 cm hiatal hernia 3. Linear reactive gastropathy Plan: I will follow-up the biopsies. Will discuss treatment options which may include Voquezna or [id number] herbal Iberogast. 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
[2024-09-30 10:05] VITALS: BP 101/69; PULSE 87; RESP 16; TEMP 36.1; O2SAT 93
[2024-09-30 10:15] VITALS: BP 110/70; PULSE 83; RESP 16; O2SAT 94
[2024-09-30 10:25] VITALS: BP 112/77; PULSE 81; RESP 18; O2SAT 96
[2024-09-30 10:35] VITALS: BP 133/70; PULSE 81; RESP 18; O2SAT 96
[2024-10-01 09:07] LABS: POC Glucose,Bedside 163 (70-110)
== END 2024-09-30 10:44 | disposition home or self-care (01) ==
PROVIDERS: PCP Family Medicine; Visit Provider Internal Medicine Gastroenterology
PROC: 0DJ08ZZ Inspection of Upper Intestinal Tract, Via Natural or Artificial Opening Endoscopic (ICD-10-PCS; CPT 43235; principal; 2024-09-30 09:30)
DX: R13.10 Dysphagia, unspecified (principal); R12 Heartburn; R14.2 Eructation; J39.2 Other diseases of pharynx; K20.90 Esophagitis, unspecified without bleeding; K22.4 Dyskinesia of esophagus; K44.9 Diaphragmatic hernia without obstruction or gangrene; K31.9 Disease of stomach and duodenum, unspecified
CPT/HCPCS: 43239; 43249; 82962; C1726; J7120

== ENCOUNTER 2025-04-01 12:30 | Outpatient (CLI) | payer MEDICAID, SELFPAY ==
--- OUTSIDE RECORDS SUMMARY | 2021-04-12 11:14 | XMS_ITS | Continuity of Care Document ---
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 Name Role Phone Manuel Mendez DDS Unavailable Unavailable Medications Medication Instructions Dosage Effective Dates (start - stop) Status Comments pantoprazole 40 mg tablet,delayed release take 1 tablet by oral route every day 40 MG - Active gabapentin 300 mg capsule - Active Fish Oil 1,000 mg (120 mg-180 mg) capsule - Active metformin 1,000 mg tablet - Active lisinopril 5 mg tablet - Active fluoxetine 10 mg capsule - Activ e cyclobenzaprine 10 mg tablet - Active ranitidine 150 mg tablet - Activ e Vitamin D2 50,000 unit capsule - Active Aspirin Low Dose 81 mg tablet,delayed release - Active Procedures Procedure Date RESIN-BASED COMPOSITE:2 SURFACES, ANT Ju RESIN-BASED COMPOSITE:2 SURFACES, ANT Ju Health History Update PERIODIC ORAL EVAL:ESTABLISHED BITEWIN FILMS INTRAORAL:PERIAPICAL 1ST FILM N/C INTRAORAL:PERIAPICAL-EA ADD FILM N/C February INTRAORAL:PERIAPICAL-EA ADD FILM N/C February INTRAORAL:PERIAPICAL-EA ADD FILM N/C February ORAL HYGIENE INSTRUCTIONS Caries Low Risk Findings BITEWIN FILMS PERIODIC ORAL EVAL:ESTABLISHED Health History Update ADULT PROPHYLAXIS(Over 14) Planned Tx Completed Health History Update ADULT PROPHYLAXIS(Over 14) PERIODIC ORAL EVAL:ESTABLISHED 19 Caries High Risk Findings ORAL HYGIENE INSTRUCTIONS Planned Tx Completed AMALGAM:1 SURFACE-PRIMARY OR PERM Planned Tx Completed Health History Update ADULT PROPHYLAXIS(Over 14) PERIODIC ORAL EVAL:ESTABLISHED 18 BITEWIN FILMS ORAL HYGIENE INSTRUCTIONS Caries High Risk Findings RESIN-BASED COMPOSITE:1 SURFACE, ANT Dec RESIN-BASED COMPOSITE:1 SURFACE, ANT Dec Planned Tx Completed Health History Update ADULT PROPHYLAXIS(Over 14) Caries High Risk Findings PERIODIC ORAL EVAL:ESTABLISHED ORAL HYGIENE INSTRUCTIONS Planned Tx Completed RESIN-BASED COMPOSITE:1 SURFACE, ANT Nov RESIN-BASED COMPOSITE:1 SURFACE, ANT Nov RESIN-BSD COMP:1 SURFACE, POST 18 AMALGAM:1 SURFACE-PRIMARY OR PERM Planned Tx Completed Health History Update RESIN-BSD COMP:1 SURFACE, POST 17 RESIN-BASED COMPOSITE:1 SURFACE, ANT Sep RESIN-BASED COMPOSITE:1 SURFACE, ANT Sep RESIN-BASED COMPOSITE:2 SURFACES, ANT Oc RESIN-BASED COMPOSITE:2 SURFACES, ANT Oc RESIN-BSD COMP:1 SURFACE, POST 17 RESIN-BASED COMPOSITE:1 SURFACE, ANT Jul Health History Update RESIN-BASED COMPOSITE:2 SURFACES, ANT Se RESIN-BASED COMPOSITE:2 SURFACES, ANT Se RESIN-BASED COMPOSITE:3 SURFACES, ANT Se RESIN-BASED COMPOSITE:3 SURFACES, ANT Au Health History Update AMALGAM:3 SURFACES-PRIMARY OR PERM AMALGAM:3 SURFACES-PRIMARY OR PERM ADULT PROPHYLAXIS(Over 14) ORAL HYGIENE INSTRUCTIONS NUTRITIONAL COUNSELING Health History Update PANORAMIC FILM BITEWIN FILMS INTRAORAL:PERIAPICAL 1ST FILM 7 INTRAORAL:PERIAPICAL-EA ADD FILM N/C Mar INTRAORAL:PERIAPICAL-EA ADD FILM N/C Mar INTRAORAL:PERIAPICAL-EA ADD FILM N/C Mar INTRAORAL:PERIAPICAL-EA ADD FILM N/C Mar INTRAORAL:PERIAPICAL-EA ADD FILM N/C Mar INTRAORAL:PERIAPICAL-EA ADD FILM N/C Mar INTRAORAL:PERIAPICAL-EA ADD FILM N/C Mar INTRAORAL:PERIAPICAL-EA ADD FILM N/C Mar INTRAORAL:PERIAPICAL-EA ADD FILM N/C Mar PERIODIC ORAL EVAL:ESTABLISHED 17 PERIODIC ORAL EVAL:ESTABLISHED 11 BITEWIN FILMS ADULT PROPHYLAXIS(Over 14) Health History Update Planned Tx Completed RESIN-BASED COMPOSITE:1 SURFACE, ANT Mar AMALGAM:1 SURFACE-PRIMARY OR PERM AMALGAM:1 SURFACE-PRIMARY OR PERM AMALGAM:1 SURFACE-PRIMARY OR PERM AMALGAM:1 SURFACE-PRIMARY OR PERM AMALGAM:1 SURFACE-PRIMARY OR PERM AMALGAM:2 SURFACES-PRIMARY OR PERM AMALGAM:1 SURFACE-PRIMARY OR PERM AMALGAM:1 SURFACE-PRIMARY OR PERM PERIODIC ORAL EVAL:ESTABLISHED 11 ADULT PROPHYLAXIS(Over 14) Health History Update ADULT PROPHYLAXIS(Over 14) Ext-Erupted Tooth Or Exp Root(Elev Forc Remvl COMPR ORAL EVAL:NEW/EST BITEWIN FILMS LIMITED ORAL EVAL:PROBLEM FOCUSED INTRAORAL:PARIAPICAL 1ST FILM 0 Ext-Erupted Tooth Or Exp Root(Elev Forc Remvl Advance Directives Directive Yes / No Effective Date File Name No Information Encounters Encounter Description Practice Location Reason(s) For Visit Diagnoses Date Provider Providers Copied on Encounter [address], [place], [place], [id number], [place] tel:[phone] [facility] No Information 1 Andrea CRAWFORDS Manuel. [address], [place], [facility], [place]. tel:[phone] [place] [address] 424 [facility] [address], [place], [place], [address], [place] tel:[phone] [facility] Dental congregation status 1 Mendez DDS Manuel. [address] [place], [address], [place]. tel:[phone] [place] [address] [address], [place], [place], [id number], [place] tel:[phone] 1915 [facility] Other dental procedure status 1 Mendez DDS Manuel. [address] [place], [address], [place]. tel:[phone], [place], [place], [id number], [place] tel:[phone] [facility] Encounter for dental exam and cleaning w/o abnormal findingsOther dental procedure statusDental congregation status 9 Mendez DDS Manuel. [address] [place], [address], [place]. tel:[phone] [place] [address], [address] [facility] [address], [place], [place], [id number], [place] tel:[phone] [facility] Other dental procedure statusEncounte r for dental exam and cleaning w/o abnormal findingsDental congregation status Mar-0 6-201 9 Mendez DDS Manuel. [address] [place], [address], [place]. tel:[phone] [facility], [address], [place], [place], [id number], [place] tel:[phone] [facility] Dental congregation status Sep-1 2-201 8 Mendez DDS Manuel. [address] [place], [address], [place]. tel:[phone] [facility], [address], [place], [place], [address], [place] tel:[phone] [facility] Other dental procedure statusEncounte r for dental exam and cleaning w/o abnormal findings Aug-2 0-201 8 Mendez DDS Manuel. [address] [place], [address], [place]. tel:[phone] [facility], [address] [place] [address] Road [address], [place], [place], [address], [place] tel:[phone] [facility] Dental congregation status Mar-0 5-201 8 Mendez DDS Manuel. [address] [place], [address], [place]. tel:[phone] [facility], [address] [place] [address] Road [address], [place], [place], [address], [place] tel:[phone] [facility] Other dental procedure statusEncounte r for dental exam and cleaning w/o abnormal findings Feb-0 8-201 8 Mendez DDS Manuel. [address] [place], [address], [place]. tel:[phone] [facility], [address] [facility] [address], [place], [place], [address], [place] tel:[phone] [facility] Dental congregation status Feb-0 5-201 8 Mendez DDS Manuel. [address] [place], [address], [place]. tel:[phone] [facility], [facility] [address] [facility] [address], [place], [place], [id number], [place] tel:[phone] [facility] Other dental procedure statusDental congregation status Dec-0 7-201 7 Mendez DDS Manuel. [address] [place], [address], [place]. tel:[phone] [facility] [place], [address], [place], [place], [address], [place] tel:[phone] [facility] Dental congregation status Oct-2 4-201 7 Mendez DDS Manuel. [address] [place], [address], [place]. tel:[phone] [facility] [place], [address], [place], [place], [address], [place] tel:[phone] [facility] Other dental procedure statusDental congregation status Sep-1 3-201 7 Mendez DDS Manuel. [address] [place], [address], [place]. tel:[phone] [facility], [address], [place], [place], [address], [place] tel:[phone] [facility] Dental congregation status Sep-1 2-201 7 Mendez DDS Manuel. [address] [place], [address], [place]. tel:[phone] [facility] [place], [address], [place], [place], [address], [place] tel:[phone] [facility] Dental congregation status Aug-2 9-201 7 Mendez DDS Manuel. [address] [place], [address], [place]. tel:[phone] [facility] [place], [address], [place], [place], [address], [place] tel:[phone] [facility] Other dental procedure statusDental congregation status Aug-0 3-201 7 Mendez DDS Manuel. [address] [place], [address], [place]. tel:[phone] [facility], [address], [place], [place], [address], [place] tel:[phone] [facility] Encounter for dental exam and cleaning w abnormal findings Walker-0 6-201 7 Andrea Jackson. [address] [place], [address], [place]. tel:[phone] [facility], [address] [facility] [address], [place], [place], [address], [place] tel:[phone] [facility] Other dental procedure status Chris-1 2- 7 [facility]. [address] [place], [address], [place]. tel:[phone] [facility], [address] [place] [address] [address], [place], [place], [address], [place] tel:[phone] [facility] No Information Nov-0 3- 1 Ofe Soares. [address] [place], [place], [address], [place]. tel:[phone] [facility], [address] [place] [address] [address], [place], [place], [address], [place] tel:[phone] [facility] No Information Chris-0 9- 1 No Information [facility], [address] [place] [address] [address], [place], [place], [address], [place] tel:[phone] [facility] No Information February- 8- 1 Ofe Soares. [address], [place], [id number], [place]. tel:[phone] [facility], [address] [place] [address] [address], [place], [place], [address], [place] tel:[phone] [facility] No Information February-0 2- 1 Ofe Soares. [address], [place], [address], [place]. tel:[phone] ADULT PROPHYLAXIS( Over 14) [address], [place], [place], [address], [place] tel:[phone] [facility] No Information 0 Ofe Soares. [address] [facility], [place], [place], [address], [place]. tel:[phone] Ext-Erupted Tooth Or Exp Root(Elev Forc Remvl [facility], [address], [place], [place], [address], [place] tel:[phone] [facility] No Information Sep-3 0-201 0 Ofe Soares. [address] [facility], [place], [place], [address], [place]. tel:[phone] COMPR ORAL EVAL:NEW/EST [facility], [address], [place], [place], [address], [place] tel:[phone] [facility] No Information - 0 Ofe Soares. [address] [place], [place], [address], [place]. tel:[phone] [facility], [address], [place], [place], [address], [place] tel:[phone] [facility] No Information Jun-10 23- 0 Ofe Soares. [address] [place], [place], [address], [place]. tel:[phone] Family History Family Member Type Diagnosis Age At Onset No Information Payers Payer name Insurance type Covered republican ID Oneida card(gen) Dayna Flood [facility] [id number] D [facility] [id number] Social History Type Description Quantity Date Captured Comments Alcohol Use Details Unknown Caffeine Use Details Unknown Tobacco Use Status No Information Smoking Status No Information Sex Female Sexual Orientation Straight or heterosexual Dec Gender Identity Female Chief Complaint And Reason For Visit No Information Reason For Referral Reason For Referral No Information Plan Of Treatment Date Type Action Status Goal HIV Screen. Due on 21 due Goal Influenza vaccine. Due on due Goal Zoster vaccine (2nd). Due on due Goal Tdap. Due on due Goal Mammogram. Due on due Goal Pap/HPV testing. Due on due Goal DNA Cologuard. Due on due Goal Zoster vaccine (1st). Due on due Goal Lipid panel. Due on due Goal Colonoscopy. Due on due Goal Low dose CT. Due on due Goal Fit test. Due on due Goal Pap/HPV testing. Due on due Goal Influenza vaccine. Due on Oc due Goal HIV Screen. Due on 19 due Goal Tdap. Due on due Goal Tdap. Due on due Goal Pap/HPV testing. Due on due Goal Influenza vaccine. Due on Ma due Goal HIV Screen. Due on due History Of Present Illness Encounter Date Complaint History Of Prese nt Illness No Information Functional Status Date Functional Assessmen t No Information Instructions Date Instruction Additional Infor mation No Information Assessments Type Assessment Date No Information Patient Care Teams Name Effective Dates (start - stop) Status Members No Information
--- NOTE | 2025-04-01 12:33 | XR_ITS ---
FINAL REPORT CLINICAL HISTORY: Left Knee Pain FINDINGS: LEFT KNEE Three views were obtained. There is no fracture or dislocation. The joint spaces appear normal. No soft tissue abnormality is identified. IMPRESSION: No acute process. Reviewed, Interpreted and Dictated by Gael Douglas MD Transcribed by Lesli Ly Authenticated and [facility]
--- NOTE | 2025-04-01 12:33 | XR_ITS ---
FINAL REPORT CLINICAL HISTORY: Right ankle pain FINDINGS: RIGHT ANKLE Three views were obtained. There is no fracture or dislocation. The joint spaces appear normal. There is edema about the ankle. Moderate plantar spur is identified. IMPRESSION: Mild edema about the ankle. Reviewed, Interpreted and Dictated by Gael Douglas MD Transcribed by Lesli Ly Authenticated and [facility]
--- NOTE | 2025-04-01 12:33 | XR_ITS ---
FINAL REPORT CLINICAL HISTORY: Left ankle pain FINDINGS: LEFT ANKLE Three views were obtained. There is no fracture or dislocation. The joint spaces appear normal. There is edema about the ankle. Moderate plantar spur is identified. IMPRESSION: Mild edema about the ankle. Reviewed, Interpreted and Dictated by Gael Douglas MD Transcribed by Lesli Ly Authenticated and [facility]
--- NOTE | 2025-04-01 12:33 | XR_ITS ---
FINAL REPORT CLINICAL HISTORY: right knee pain FINDINGS: RIGHT KNEE Three views were obtained. There is no fracture or dislocation. The joint spaces appear normal. No soft tissue abnormality is identified. IMPRESSION: No acute process. Reviewed, Interpreted and Dictated by Gael Douglas MD Transcribed by Lesli Ly Authenticated and [facility]
== END 2025-04-01 23:59 | disposition home or self-care (01) ==
LOC: RAD 12:31
PROVIDERS: PCP Family Medicine; Visit Provider Physician Assistant Surgical
DX: M77.32 Calcaneal spur, left foot (principal); M25.561 Pain in right knee; R22.43 Localized swelling, mass and lump, lower limb, bilateral; M25.571 Pain in right ankle and joints of right foot; M25.572 Pain in left ankle and joints of left foot; M25.562 Pain in left knee
CPT/HCPCS: 73562; 73610